=== PATIENT | male | born 1995 | race African-American/Black ===

== ENCOUNTER 2023-05-22 14:19 | Observation (INO) | payer OTHER ==
[2023-05-22 15:41] LABS: Appearance Clear (Clear); Bacteria None Seen /HPF (None Seen); Bilirubin Negative (Negative); Blood Trace (Negative); Epithelial Cells None Seen /HPF (None Seen); Glucose, Urine Negative (Negative); Ketones 40 (Negative); Leukocyte Esterase Negative (Negative); Nitrite Negative (Negative); Protein,Urine Dip 100 (Negative); RBC 0-2 /HPF (0-5); Specific Gravity 1.025 (1.005-1.030); Urobilinogen 0.2 mg/dL (0.2); WBC 0-2 /HPF (0-5)
[2023-05-22] MEDS ORDERED: Zofran 4 MG/2 ML VIAL IV ONE (15:42)
[2023-05-22] MEDS ORDERED: Sodium Chloride 0.9% 1000 ML 1,000 ML IV STA ×2 (15:42→16:47)
[2023-05-22] MEDS ORDERED: MORPHINE SULFATE 2 MG INJ IV ONE (15:42)
[2023-05-22 15:44] LABS: ADD URINE CULTURE? NO (NO)
[2023-05-22] MEDS ORDERED: Zofran 4 MG/2 ML VIAL ONE (15:51)
[2023-05-22] MEDS ORDERED: Sodium Chloride 0.9% 1000 ML 1,000 ML ONE ×2 (15:52→16:55)
[2023-05-22] MEDS ORDERED: MORPHINE SULFATE 2 MG INJ ONE (15:52)
[2023-05-22] MEDS ORDERED: Ativan 2 MG/1 ML VIAL IV ONE (15:59)
--- NOTE | 2023-05-22 16:00 | ERPHSYRPT ---
- History of Present Illness Time Seen by Provider: 05/22/23 16:00 Historian: patient Exam Limitations: no limitations Patient Subjective Stated Complaint: n/v/d Triage Nursing Assessment: Patient reports to ER with c/o abdominal pain, patient rating pain 8/10 at this time. Patient states that for the last couple of months he has been on a drinking binge consuming 1/2 gallon or greater daily and states that he has not consumed any alchohol x 3 days per his choice. Patient states that since he stopped drinking he has been experiencing n/v/d and constant abdominal cramping. Patient also reporting heartburn at this time. Patient with easy respirations but does appear diaphoretic and vomited x 1 during triage. Patient a&o x 3 and able to ambulate per self. Physician History: The patient presents with a chief complaint of stomach pain and discomfort, which began after they stopped drinking alcohol four days ago. They report having been drinking heavily for the past 2-3 months, consuming approximately half a gallon of alcohol each time. The patient has not experienced alcohol withdrawal or pancreatitis in the past. In addition to stomach pain, the patient has been experiencing flu-like symptoms, such as aching muscles, which they believe may be related to their kidneys and liver. They have been massaging the affected areas for temporary relief. The patient has also been unable to hold down liquids or food and has not been able to sleep for the past few days. They describe the sensation of drinking liquids as feeling like they are about to vomit. The patient has also been experiencing auditory and visual hallucinations, as well as disorientation. They report an instance where they were unable to re cognize their surroundings in their own home for about 10 seconds. They have also been feeling jittery, with a racing heart and trembling hands. Furthermore, the patient has been dealing with dental issues, including exposed nerves and chipped teeth in the back of their mouth. They report that their gums continue to grow over the affected teeth, causing significant pain. They have not been on antibiotics for this issue since approximately 11 months ago. Timing/Duration: day(s) (3) Activities at Onset: rest Quality: sharpness, stabbing Abdominal Pain Onset Location: epigastric Pain Radiation: no radiation Severity of Pain-Max: severe Severity of Pain-Current: severe Modifying Factors: Improves With: nothing. Worsens With: eating, movement, palpation, vomiting Associated Symptoms: diaphoresis, loss of appetite, nausea, vomiting, No chest pain, No diarrhea, No fever/chills, No headache, No rash, No shortness of breath Previous symptoms: no prior history Allergies/Adverse Reactions: No Known Drug Allergies Allergy (Unverified 05/22/23 15:22) Travel Risk - International Travel Have you traveled outside of the country in past 3 weeks: No - Coronavirus Screening Are you exhibiting any of the following symptoms?: No Close contact with a COVID-19 positive Pt in past 14-21 Days: No - Vaccine Status Have you recieved a Covid-19 vaccination: No - Review of Systems All Other Systems: Reviewed and Negative (As per HPI) - Past Medical History Pertinent Past Medical History: Yes Neurological History: No Pertinent History ENT History: No Pertinent History Cardiac History: No Pertinent History Respiratory History: No Pertinent History Endocrine Medical History: No Pertinent History Musculoskeletal History: No Pertinent History GI Medical History: No Pertinent History History: No Pertinent History Psycho-Social History: Anxiety, Bipolar, Depression Male Reproductive Disorders: No Pertinent History Other Medical History: schizophrenia. insomnia - Past Surgical History Past Surgical History: No - Social History Smoking Status: Never smoker Patient Lives Alone: No - Nursing Vital Signs Nursing Vital Signs: Initial Vital Signs Temperature 98.5 F 05/22/23 15:28 Pulse Rate 115 H 05/22/23 15:28 Respiratory Rate 21 05/22/23 15:28 Blood Pressure 133/100 05/22/23 15:28 O2 Sat by Pulse Oximetry 98 05/22/23 15:28 Pain Scale Pain Intensity 5 - Physical Exam General Appearance: moderate distress Eye Exam: eyes nml inspection Ears, Nose, Throat Exam: normal ENT inspection Neck Exam: normal inspection, non-tender, supple, full range of motion Respiratory Exam: normal breath sounds, No respiratory distress Cardiovascular Exam: regular rate/rhythm, capillary refill >3 sec, No edema Gastrointestinal/Abdomen Exam: soft, normal bowel sounds, tenderness (epigastric), guarding, No distention, No rebound Neurologic Exam: alert, oriented x 3, cooperative, crime scene photographer II-XII nml as tested, normal mood/affect, nml cerebellar function, sensation nml Skin Exam: normal color, warm, dry, No rash SpO2 Interpretation: normal SpO2: 98 O2 Delivery: Room Air - Course Nursing assessment & vital signs reviewed: Yes EKG Interpreted by Me: RATE (105), Sinus Tach, NORMAL AXIS, NORMAL INTERVALS, NORMAL QRS, NORMAL ST-T - CT Exams Abdomen/Pelvis CT Interpretation: Tele-radiologist Report (Appendix upper limit of normal, subcentimeter mesenteric lymph nodes) Ordered Tests: Active Orders 24 hr Category Date Time Status Clear Liquid Diet 05/23/23 Breakfast Completed Medication Summary Discontinued Medications Generic Name Dose Route Start Last Admin Trade Name Freq PRN Reason Stop Dose Admin Hydrocodone Bitart/Acetaminophen 1 tab 05/22/23 20:00 05/23/23 16:54 Hydrocodone/Apap 5/325 1 Tab Tablet PO 05/27/23 19:59 1 tab Q6H PRN PRN Administration PAIN Amoxicillin 500 mg 05/23/23 10:00 05/23/23 14:05 Amoxicillin Trihydrate 500 Mg Capsule PO 06/22/23 09:59 500 mg TID WILLIAM Administration Calcium Carbonate/Glycine 750 mg 05/23/23 08:26 05/23/23 14:05 Calcium Carbonate 750 Mg 750 Mg Tab.Chew PO 06/22/23 08:29 750 mg BID PRN PRN Administration INDIGESTION Diazepam 5 mg 05/23/23 09:31 05/23/23 10:24 Diazepam 5 Mg Tablet PO 06/22/23 09:30 5 mg PRN PRN Administration CIWA SCORE Famotidine 40 mg 05/23/23 10:00 05/23/23 09:33 Famotidine 20 Mg Tablet PO 06/22/23 09:59 40 mg DAILY WILLIAM Administration Folic Acid 1 mg 05/23/23 10:00 05/23/23 10:05 Folic Acid 1 Mg Tablet PO 06/22/23 09:59 1 mg DAILY WILLIAM Administration Sodium Chloride 1,000 mls @ 999 mls/hr 05/22/23 15:42 05/22/23 16:54 Sodium Chloride 0.9% 1000 Ml IV 05/22/23 16:42 Infused .Q1H1M STA Infusion Sodium Chloride Confirm 05/22/23 15:52 Sodium Chloride 0.9% 1000 Ml Administered 05/22/23 15:53 Dose 1,000 mls @ ud .ROUTE .STK-MED ONE Sodium Chloride 1,000 mls @ 999 mls/hr 05/22/23 16:47 05/22/23 18:02 Sodium Chloride 0.9% 1000 Ml IV 05/22/23 17:47 Infused .Q1H1M STA Infusion Sodium Chloride Confirm 05/22/23 16:55 Sodium Chloride 0.9% 1000 Ml Administered 05/22/23 16:56 Dose 1,000 mls @ ud .ROUTE .STK-MED ONE Ceftriaxone Sodium/Dextrose 2 g in 50 mls @ 100 mls/hr 05/22/23 17:23 05/22/23 18:02 Rocephin 2 Gm-D5w 50ml Bag IV 05/22/23 17:52 Infused STAT STA Infusion Metronidazole 500 mg in 100 mls @ 200 mls/hr 05/22/23 17:23 05/22/23 18:05 Flagyl 500 Mg Ivpb IV 05/22/23 17:52 200 ml/hr STAT STA 200 mls/hr Administration Ceftriaxone Sodium/Dextrose Confirm 05/22/23 17:28 Rocephin 2 Gm-D5w 50ml Bag Administered 05/22/23 17:29 Dose 2 g in 50 mls @ ud IV .STK-MED ONE Metronidazole Confirm 05/22/23 18:03 Flagyl 500 Mg Ivpb Administered 05/22/23 18:04 Dose 500 mg in 100 mls @ ud IV .STK-MED ONE Sodium Chloride 1,000 mls @ 100 mls/hr 05/23/23 08:30 05/23/23 09:33 Sodium Chloride 0.9% 1000 Ml IV 06/22/23 08:29 100 mls/hr .Q10H WILLIAM Administration Lorazepam 1 mg 05/22/23 15:59 05/22/23 16:06 Lorazepam 2 Mg/1 Ml 2 Mg Vial IV 05/22/23 16:00 1 mg STAT ONE Administration Lorazepam Confirm 05/22/23 16:05 Lorazepam 2 Mg/1 Ml 2 Mg Vial Administered 05/22/23 16:06 Dose 2 mg .ROUTE .STK-MED ONE Melatonin 6 mg 05/22/23 20:02 05/22/23 20:09 Melatonin 3 Mg Tablet PO 06/21/23 20:01 6 mg HS PRN PRN Administration INSOMNIA Melatonin Confirm 05/22/23 20:06 Melatonin 3 Mg Tablet Administered 05/22/23 20:07 Dose 6 mg PO .STK-MED ONE Mirtazapine 30 mg 05/23/23 22:00 Mirtazapine 30 Mg Tablet PO 06/22/23 21:59 QHS WILLIAM Mirtazapine 15 mg 05/23/23 22:00 Mirtazapine 15 Mg Tablet PO 06/22/23 21:59 HS WILLIAM Morphine Sulfate 2 mg 05/22/23 15:42 05/22/23 15:53 Morphine Sulfate 2 Mg/Ml Inj IV 05/22/23 15:43 2 mg STAT ONE Administration Morphine Sulfate Confirm 05/22/23 15:52 Morphine Sulfate 2 Mg/Ml Inj Administered 05/22/23 15:53 Dose 2 mg .ROUTE .STK-MED ONE Multivitamins Therapeutic 1 tab 05/23/23 10:00 05/23/23 10:05 Multivitamins,Therapeutic 1 Tab Tab PO 06/22/23 09:59 1 tab QAM WILLIAM Administration Ondansetron HCl 4 mg 05/22/23 15:42 05/22/23 15:53 Ondansetron Hcl 4 Mg/2 Ml Vial IV 05/22/23 15:43 4 mg STAT ONE Administration Ondansetron HCl Confirm 05/22/23 15:51 Ondansetron Hcl 4 Mg/2 Ml Vial Administered 05/22/23 15:52 Dose 4 mg .ROUTE .STK-MED ONE Ondansetron HCl 4 mg 05/23/23 08:23 05/23/23 14:05 Ondansetron Hcl 4 Mg/2 Ml Vial IV 06/22/23 08:22 4 mg Q6H PRN PRN Administration NAUSEA/VOMITING Quetiapine Fumarate 200 mg 05/23/23 22:00 Quetiapine Fumarate 100 Mg Tablet PO 06/22/23 21:59 QHS [facility] Thiamine HCl 100 mg 05/23/23 10:00 05/23/23 10:05 Thiamine Hcl 100 Mg Tablet PO 06/22/23 09:59 100 mg DAILY WILLIAM Administration Lab/Rad Data: Laboratory Result Diagrams 05/22/23 15:42 05/22/23 15:42 Laboratory Results 05/22/23 05/22/23 05/22/23 Range/Units 16:36 15:45 15:43 WBC (4.0-10.5) x10^3/uL RBC (4.1-5.6) x10^6/uL Hgb (12.5-18.0) g/dL Hct (42-50) % MCV (78-100) fL MCH (26-32) pg MCHC (32-36) g/dL RDW (11.5-14.0) % Plt Count (150-450) x10^3/uL MPV (7.5-11.0) fL Gran % (36.0-66.0) % Immature Gran % (Auto) (0.00-0.4) % Nucleat RBC Rel Count (0.00-0.1) % Eos # (Auto) (0-0.5) x10^3/uL Immature Gran # (Auto) (0.00-0.03) x10^3u/L Absolute Lymphs (auto) (1.0-4.6) x10^3/uL Absolute Monos (auto) (0.0-1.3) x10^3/uL Absolute Nucleated RBC (0.00-0.01) x10^3u/L Lymphocytes % (24.0-44.0) % Monocytes % (0.0-12.0) % Eosinophils % (0.00-5.0) % Basophils % (0.0-0.4) % Absolute Granulocytes (1.4-6.9) x10^3/uL Basophils # (0-0.4) x10^3/uL Sodium (137-145) mmol/L Potassium (3.5-5.1) mmol/L Chloride (98-107) mmol/L Carbon Dioxide (22-30) mmol/L Anion Gap (5-15) MEQ/L BUN (9-20) mg/dL Creatinine (0.66-1.25) mg/dL Estimated GFR ML/MIN Glucose (74-106) mg/dL Lactic Acid 6.0 H (0.4-2.0) Calcium (8.4-10.2) mg/dL Total Bilirubin (0.2-1.3) mg/dL AST (17-59) U/L ALT (0-50) U/L Alkaline Phosphatase (38-126) U/L Troponin I < 0.012 (0.000-0.034) ng/mL Serum Total Protein (6.3-8.2) g/dL Albumin (3.5-5.0) g/dL Lipase (23-300) U/L Urine Color (Yellow) Urine Appearance (Clear) Urine pH (4.6-8.0) Ur Specific [place] (1.005-1.030) Urine Protein (Negative) Urine Glucose (UA) (Negative) mg/dL Urine Ketones (Negative) Urine Blood (Negative) Urine Nitrite (Negative) Urine Bilirubin (Negative) Urine Urobilinogen (0.2) mg/dL Ur Leukocyte Esterase (Negative) U Hyaline Cast (Auto) (0-2) /LPF Urine Microscopic RBC (0-5) /HPF Urine Microscopic WBC (0-5) /HPF Ur Epithelial Cells (None Seen) /HPF Urine Bacteria (None Seen) /HPF Urine Culture Reflexed (NO) Ethyl Alcohol < 10 (0-10) mg/dL 05/22/23 05/22/23 05/22/23 Range/Units 15:42 15:42 14:57 WBC 15.3 H (4.0-10.5) x10^3/uL RBC 6.04 H (4.1-5.6) x10^6/uL Hgb 17.2 (12.5-18.0) g/dL Hct 53.3 H (42-50) % MCV 88.2 (78-100) fL MCH 28.5 (26-32) pg MCHC 32.3 (32-36) g/dL RDW 14.6 H (11.5-14.0) % Plt Count 359 (150-450) x10^3/uL MPV 10.2 (7.5-11.0) fL Gran % 84.5 H (36.0-66.0) % Immature Gran % (Auto) 0.4 (0.00-0.4) % Nucleat RBC Rel Count 0.0 (0.00-0.1) % Eos # (Auto) 0 (0-0.5) x10^3/uL Immature Gran # (Auto) 0.06 H (0.00-0.03) x10^3u/L Absolute Lymphs (auto) 1.68 (1.0-4.6) x10^3/uL Absolute Monos (auto) 0.59 (0.0-1.3) x10^3/uL Absolute Nucleated RBC 0.00 (0.00-0.01) x10^3u/L Lymphocytes % 11.0 L (24.0-44.0) % Monocytes % 3.9 (0.0-12.0) % Eosinophils % 0.0 (0.00-5.0) % Basophils % 0.2 (0.0-0.4) % Absolute Granulocytes 12.90 H (1.4-6.9) x10^3/uL Basophils # 0.03 (0-0.4) x10^3/uL Sodium 142 (137-145) mmol/L Potassium 4.9 (3.5-5.1) mmol/L Chloride 101 (98-107) mmol/L Carbon Dioxide 21 L (22-30) mmol/L Anion Gap 24.6 H (5-15) MEQ/L BUN 21 H (9-20) mg/dL Creatinine 1.39 H (0.66-1.25) mg/dL Estimated GFR > 60.0 ML/MIN Glucose 100 (74-106) mg/dL Lactic Acid (0.4-2.0) Calcium 10.4 H (8.4-10.2) mg/dL Total Bilirubin 0.70 (0.2-1.3) mg/dL AST 51 (17-59) U/L ALT 50 (0-50) U/L Alkaline Phosphatase 94 (38-126) U/L Troponin I (0.000-0.034) ng/mL Serum Total Protein 10.1 H (6.3-8.2) g/dL Albumin 5.8 H (3.5-5.0) g/dL Lipase 51 (23-300) U/L Urine Color Yellow (Yellow) Urine Appearance Clear (Clear) Urine pH 5.0 (4.6-8.0) Ur Specific [place] 1.025 (1.005-1.030) Urine Protein 100 A (Negative) Urine Glucose (UA) Negative (Negative) mg/dL Urine Ketones 40 A (Negative) Urine Blood Trace (Negative) Urine Nitrite Negative (Negative) Urine Bilirubin Negative (Negative) Urine Urobilinogen 0.2 (0.2) mg/dL Ur Leukocyte Esterase Negative (Negative) U Hyaline Cast (Auto) 3-5 A (0-2) /LPF Urine Microscopic RBC 0-2 (0-5) /HPF Urine Microscopic WBC 0-2 (0-5) /HPF Ur Epithelial Cells None Seen (None Seen) /HPF Urine Bacteria None Seen (None Seen) /HPF Urine Culture Reflexed NO (NO) Ethyl Alcohol (0-10) mg/dL - Progress Progress: improved Progress Note: -Overall sick appearing. No abnormal cardiopulmonary findings. Moderate abdominal ttp. No guarding. Surgical process seems possible given the exam and presentation. History and exam doesnt suggest AAA so no indication for CTA. Could be a benign cause of pain although dangerous pathology needs to be ruled out first -CT abd/pelv -Abdominal pain labs, analgesics CT without acute pathology. No pancreatitis on labs. Lactate elevated at 6, WBC 15 and Cr 1.36. Patient resting comfortably. Patient states they feel much better after meds and IVF. We discussed the limitations of CT imaging and that no test is perfect at finding all abnormalities. I discussed that the overall picture at this point is of a likely functional rather than surgical or infectious process. They understood. I did offer admission for further observation and care if they would like and patient elected to stay. Dental abscess The patient presents with dental pain, small abscess noted. There is no evidence at this point for a drainable site. The patient had no evidence for sepsis Ludwigs angina, posterior pharyngeal abscess, retropharyngeal infection, or airway compromise. Will treat with Ceftriaxone in the ED. I discussed with the patient the need for antibiotics and follow-up with Dentist/OMFS as an outpatient. There is no evidence for more malignant etiology for the symptoms at this time. I discussed the possibility of more malignant etiologies with patient who understands this possibility and will call or return immediately with worsening symptoms. Discussed return precautions at length. The patient understands to return for any worsening symptoms or failure to improve. Alcohol withdrawal + recent reduction in alcohol use from chronic abuse + anxiety +nausea + tachycardia + tremor + diaphoresis + auditory hallucinations Denies tactile and visual hallucinations. AAOx3. Denies history of withdrawal seizures, ICU admissions, DTs. Workup: Including but not limited to POCT glucose, CBC, BMP Interventions: Ativan 2mg q20min PRN withdrawal symptoms for 3-4 doses and reassess disposition. Given History, Exam, and Workup this patient appears to be suffering from alcohol withdrawal. Presentation not consistent with infectious etiology, thyrotoxicosis, Coingestion toxidrome/withdrawal, primary psychologic disorder such as anxiety, Severe Metabolic Derangement (hypoglycemia, alcoholic ketoacidosis, or other e- lyte abnormality). Reassessment: Frequent exams showed improving symptoms and evidence that the patients symptoms are secondary to a controllable withdrawal from alcohol. Disposition: Will admit to the floor for further management due to abd pain, LUCAS and alcohol withdrawal. Will see patient in: hospital (observation) Counseled pt/family regarding: drug and/or alcohol abuse, lab results, diagnosis, need for follow-up, rad results Medical Desision Making - Discussion of managment Care discussed with:: hospitalist Reviewed:: Test results Agreed on:: Treatment plan, place in obs Will see patient: in hospital - Diagnostic Testing Diagnostic test were ordered, analyzed, and reviewed by me: Yes Radiological Interpretation: Interpreted by me, Reviewed by me, Teleradiologist Report - Risk of complications The pt has a mod risk of morbidity or mortality based on: Need for prescription drug management The pt has a high risk of morbidity or mortality based on: Decision regarding hospitilization or escalation of hosp level of care - Departure Departure Disposition: Observation Clinical Impression: Alcohol withdrawal, Mesenteric lymphadenitis, Leukocytosis, LUCAS (acute kidney injury), Lactic acid increased Condition: Fair Critical Care Time: No
[2023-05-22] MEDS ORDERED: Ativan 2 MG/1 ML VIAL ONE (16:05)
[2023-05-22 16:16] LABS: BASOPHIL % 0.2 % (0.0-0.4); Basophil (Absolute #) 0.03 x10^3/uL (0-0.4); Eosinophil (Absolute #) 0 x10^3/uL (0-0.5); Hematocrit 53.3 % (42-50); Hemoglobin 17.2 g/dL (12.5-18.0); IMMATURE GRAN # 0.06 x10^3u/L (0.00-0.03); IMMATURE GRAN % 0.4 % (0.00-0.4); Lymphocyte (Absolute #) 1.68 x10^3/uL (1.0-4.6); Mean Cell Volume 88.2 fL (78-100); Mean Corpuscular Hemoglobin 28.5 pg (26-32); Mean Corpuscular Hgb Concent. 32.3 g/dL (32-36); Mean Platelet Volume 10.2 fL (7.5-11.0); Monocyte (Absolute #) 0.59 x10^3/uL (0.0-1.3); Monocytes % 3.9 % (0.0-12.0); Neutrophil % 84.5 % (36.0-66.0); Platelet Count 359 x10^3/uL (150-450); Red Blood Count 6.04 x10^6/uL (4.1-5.6); Red Cell Distribution Width 14.6 % (11.5-14.0); White Blood Count 15.3 x10^3/uL (4.0-10.5)
[2023-05-22 16:28] LABS: ALBUMIN 5.8 g/dL (3.5-5.0); ALKALINE PHOSPHATASE 94 U/L (38-126); ANION GAP 24.6 MEQ/L (5-15); BLOOD UREA NITROGEN 21 mg/dL (9-20); CHLORIDE 101 mmol/L (98-107); Calcium 10.4 mg/dL (8.4-10.2); Carbon Dioxide 21 mmol/L (22-30); Creatinine 1 1.39 mg/dL (0.66-1.25); EST GLOMERULAR FILTRATION RATE > 60.0 ML/MIN; Glucose 100 mg/dL (74-106); LIPASE 51 U/L (23-300); Potassium 4.9 mmol/L (3.5-5.1); SGOT/AST 51 U/L (17-59); SODIUM 142 mmol/L (137-145); Total Protein 10.1 g/dL (6.3-8.2)
[2023-05-22 16:33] LABS: SGPT/ALT 50 U/L (0-50)
--- NOTE | 2023-05-22 17:03 | XRAY ---
CLINICAL HISTORY:abd pain COMPARISON:None. TECHNIQUE:CT of the abdomen and pelvis was performed with axial images as well as sagittal and coronal reconstruction images without intravenous contrast. FINDINGS: The liver is normal in size, morphology and appears unremarkable with no intrahepatic or extrahepatic bile duct dilation. Unremarkable appearing gallbladder with no stones wall thickening or pericholecystic inflammatory changes or fluid. Unremarkable appearing pancreas. No pancreatic mass or ductal dilatation is seen. Unremarkable appearing spleen. The adrenal glands are normal. The kidneys appear unremarkable with no cysts masses or hydronephrosis. The ureters are normal with no stones. Unremarkable abdominal aorta without specific evidence of aneurysm or dissection. IVC is normal. The stomach appears unremarkable. Unremarkable appearing duodenum. Small Bowel and colon are non-distended with no abnormality. The appendix is visualized, size is upper limit of normal. No periappendiceal fat stranding seen. Few subcentimeter mesenteric lymph nodes seen. No free air and no ascites. No free intraperitoneal air is seen. Normal size and appearance of the prostate. No other bony abnormality was detected. Tiny phlebolith in the posterior right hemipelvis. IMPRESSION: 1. Limited organ parenchymal evaluation within the limitations of non-contrast study. 2. The appendix is visualized, size is upper limit of normal. No periappendiceal fat stranding seen. Few subcentimeter mesenteric lymph nodes seen. Clinical and lab correlation is suggested. 3. Otherwise, no acute intra-abdominal abnormality. Electronically Signed by: Josep Ge MD. (05/22/2023 16:02:49 [employer])
[2023-05-22] MEDS ORDERED: FLAGYL 500 MG IVPB 500 MG/100 ML BAG IV STA (17:23)
[2023-05-22] MEDS ORDERED: ROCEPHIN 2 Gm-D5w 50ML BAG** 2 G/50 ML IVPB IV STA (17:23)
[2023-05-22] MEDS ORDERED: ROCEPHIN 2 Gm-D5w 50ML BAG** 2 G/50 ML IVPB IV ONE (17:28)
[2023-05-22] MEDS ORDERED: FLAGYL 500 MG IVPB 500 MG/100 ML BAG IV ONE (18:03)
[2023-05-22] MEDS ORDERED: MELATONIN PO PRN (20:02)
[2023-05-22] MEDS ORDERED: MELATONIN PO ONE (20:06)
[2023-05-22] MEDS: NORCO 5/325 MG PO PRN (20:08)
[2023-05-23] MEDS: NORCO 5/325 MG PO PRN ×3 (03:53→16:54)
[2023-05-23 07:01] VITALS: RESP 17
[2023-05-23] MEDS ORDERED: Zofran 4 MG/2 ML VIAL IV PRN (08:23)
[2023-05-23] MEDS ORDERED: Tums EX 750 MG PO PRN (08:26)
[2023-05-23] MEDS ORDERED: Sodium Chloride 0.9% 1000 ML 1,000 ML IV SCH (08:30)
[2023-05-23 08:58] LABS: Hematocrit 42.7 % (42-50); Hemoglobin 13.8 g/dL (12.5-18.0); Mean Cell Volume 89.3 fL (78-100); Mean Corpuscular Hemoglobin 28.9 pg (26-32); Mean Corpuscular Hgb Concent. 32.3 g/dL (32-36); Platelet Count 265 x10^3/uL (150-450); Red Blood Count 4.78 x10^6/uL (4.1-5.6); Red Cell Distribution Width 14.8 % (11.5-14.0); White Blood Count 7.4 x10^3/uL (4.0-10.5)
[2023-05-23 09:29] LABS: ALBUMIN 4.1 g/dL (3.5-5.0); ALKALINE PHOSPHATASE 60 U/L (38-126); ANION GAP 9.9 MEQ/L (5-15); BLOOD UREA NITROGEN 17 mg/dL (9-20); CHLORIDE 105 mmol/L (98-107); Calcium 8.5 mg/dL (8.4-10.2); Carbon Dioxide 26 mmol/L (22-30); Creatinine 1 1.06 mg/dL (0.66-1.25); EST GLOMERULAR FILTRATION RATE > 60.0 ML/MIN; Glucose 115 mg/dL (74-106); Potassium 4.2 mmol/L (3.5-5.1); SGOT/AST 43 U/L (17-59); SGPT/ALT 33 U/L (0-50); SODIUM 136 mmol/L (137-145)
[2023-05-23] MEDS ORDERED: Valium 5 MG PO PRN (09:31)
[2023-05-23] MEDS ORDERED: VITAMIN B-1 100 MG PO SCH (10:00)
[2023-05-23] MEDS ORDERED: FOLATE 1 MG PO SCH (10:00)
[2023-05-23] MEDS ORDERED: Pepcid 20 MG PO SCH (10:00)
[2023-05-23] MEDS ORDERED: THERAGRAN MULTIVITAMIN PO SCH (10:00)
[2023-05-23] MEDS: AMOXIL 500 MG PO SCH ×2 (10:05→14:05)
--- NOTE | 2023-05-23 14:28 | PCM.DS ---
Discharge Summary Date of Admission: 05/22/23 18:12 Date of Discharge: 05/23/23 Admitting Physician: KAROLYN CHOU MD Consults: Consults on Case 05/22/23 16:00 Psychiatric Consult STAT Primary Care Provider: NO FAMILY DOCTOR Allergies Allergies No Known Drug Allergies Allergy (Unverified 05/22/23 15:22) Hospital Summary - Hospital Course Hospital Course: 05/23/23 Patient reports to ER yesterday with c/o abdominal pain, patient rating pain 8/10 at that time. Patient states that for the last couple of months he has been on a drinking binge consuming 1/2 gallon of Amanda or greater daily and states that he has not consumed any alcohol x 3 days per his choice. Patient states that since he stopped drinking he has been experiencing n/v/d and constant abdominal cramping. Patient also reporting heartburn. Pt is feeling better today just a little shaky. He is wanting to go home. Psych consulted and ok with DC. Pt to f/u OP with [facility]. Pt denies suicidal or homicidal ideation. He is refusing to go to a rehab facility as he has pending court dates. He is willing to consider after his court dates. - Vitals & Intake/Output Vital Signs: Vital Signs Temperature 97.5 F 05/23/23 11:35 Pulse Rate 75 05/23/23 11:35 Respiratory Rate 17 05/23/23 11:35 Blood Pressure 115/64 05/23/23 11:35 O2 Sat by Pulse Oximetry 98 05/23/23 11:35 Intake & Output: Intake & Output 05/21/23 05/22/23 05/23/23 05/24/23 11:59 11:59 11:59 11:59 Intake Total 2860 240 Balance 2860 240 Weight 81.7 kg - Lab Result Diagrams: 05/23/23 08:21 05/23/23 08:21 Lab Results-Last 24 Hrs: Lab Results-Last 24 Hours 05/22/23 05/22/23 05/22/23 Range/Units 14:57 15:42 15:42 WBC 15.3 H (4.0-10.5) x10^3/uL RBC 6.04 H (4.1-5.6) x10^6/uL Hgb 17.2 (12.5-18.0) g/dL Hct 53.3 H (42-50) % MCV 88.2 (78-100) fL MCH 28.5 (26-32) pg MCHC 32.3 (32-36) g/dL RDW 14.6 H (11.5-14.0) % Plt Count 359 (150-450) x10^3/uL MPV 10.2 (7.5-11.0) fL Gran % 84.5 H (36.0-66.0) % Immature Gran % (Auto) 0.4 (0.00-0.4) % Nucleat RBC Rel Count 0.0 (0.00-0.1) % Eos # (Auto) 0 (0-0.5) x10^3/uL Immature Gran # (Auto) 0.06 H (0.00-0.03) x10^3u/L Absolute Lymphs (auto) 1.68 (1.0-4.6) x10^3/uL Absolute Monos (auto) 0.59 (0.0-1.3) x10^3/uL Absolute Nucleated RBC 0.00 (0.00-0.01) x10^3u/L Lymphocytes % 11.0 L (24.0-44.0) % Monocytes % 3.9 (0.0-12.0) % Eosinophils % 0.0 (0.00-5.0) % Basophils % 0.2 (0.0-0.4) % Absolute Granulocytes 12.90 H (1.4-6.9) x10^3/uL Basophils # 0.03 (0-0.4) x10^3/uL Sodium 142 (137-145) mmol/L Potassium 4.9 (3.5-5.1) mmol/L Chloride 101 (98-107) mmol/L Carbon Dioxide 21 L (22-30) mmol/L Anion Gap 24.6 H (5-15) MEQ/L BUN 21 H (9-20) mg/dL Creatinine 1.39 H (0.66-1.25) mg/dL Estimated GFR > 60.0 ML/MIN Glucose 100 (74-106) mg/dL Lactic Acid (0.4-2.0) Calcium 10.4 H (8.4-10.2) mg/dL Total Bilirubin 0.70 (0.2-1.3) mg/dL AST 51 (17-59) U/L ALT 50 (0-50) U/L Alkaline Phosphatase 94 (38-126) U/L Troponin I (0.000-0.034) ng/mL Serum Total Protein 10.1 H (6.3-8.2) g/dL Albumin 5.8 H (3.5-5.0) g/dL Lipase 51 (23-300) U/L Urine Color Yellow (Yellow) Urine Appearance Clear (Clear) Urine pH 5.0 (4.6-8.0) Ur Specific [place] 1.025 (1.005-1.030) Urine Protein 100 A (Negative) Urine Glucose (UA) Negative (Negative) mg/dL Urine Ketones 40 A (Negative) Urine Blood Trace (Negative) Urine Nitrite Negative (Negative) Urine Bilirubin Negative (Negative) Urine Urobilinogen 0.2 (0.2) mg/dL Ur Leukocyte Esterase Negative (Negative) U Hyaline Cast (Auto) 3-5 A (0-2) /LPF Urine Microscopic RBC 0-2 (0-5) /HPF Urine Microscopic WBC 0-2 (0-5) /HPF Ur Epithelial Cells None Seen (None Seen) /HPF Urine Bacteria None Seen (None Seen) /HPF Urine Culture Reflexed NO (NO) Ethyl Alcohol (0-10) mg/dL 05/22/23 05/22/23 05/22/23 Range/Units 15:43 15:45 16:36 WBC (4.0-10.5) x10^3/uL RBC (4.1-5.6) x10^6/uL Hgb (12.5-18.0) g/dL Hct (42-50) % MCV (78-100) fL MCH (26-32) pg MCHC (32-36) g/dL RDW (11.5-14.0) % Plt Count (150-450) x10^3/uL MPV (7.5-11.0) fL Gran % (36.0-66.0) % Immature Gran % (Auto) (0.00-0.4) % Nucleat RBC Rel Count (0.00-0.1) % Eos # (Auto) (0-0.5) x10^3/uL Immature Gran # (Auto) (0.00-0.03) x10^3u/L Absolute Lymphs (auto) (1.0-4.6) x10^3/uL Absolute Monos (auto) (0.0-1.3) x10^3/uL Absolute Nucleated RBC (0.00-0.01) x10^3u/L Lymphocytes % (24.0-44.0) % Monocytes % (0.0-12.0) % Eosinophils % (0.00-5.0) % Basophils % (0.0-0.4) % Absolute Granulocytes (1.4-6.9) x10^3/uL Basophils # (0-0.4) x10^3/uL Sodium (137-145) mmol/L Potassium (3.5-5.1) mmol/L Chloride (98-107) mmol/L Carbon Dioxide (22-30) mmol/L Anion Gap (5-15) MEQ/L BUN (9-20) mg/dL Creatinine (0.66-1.25) mg/dL Estimated GFR ML/MIN Glucose (74-106) mg/dL Lactic Acid 6.0 H (0.4-2.0) Calcium (8.4-10.2) mg/dL Total Bilirubin (0.2-1.3) mg/dL AST (17-59) U/L ALT (0-50) U/L Alkaline Phosphatase (38-126) U/L Troponin I < 0.012 (0.000-0.034) ng/mL Serum Total Protein (6.3-8.2) g/dL Albumin (3.5-5.0) g/dL Lipase (23-300) U/L Urine Color (Yellow) Urine Appearance (Clear) Urine pH (4.6-8.0) Ur Specific [place] (1.005-1.030) Urine Protein (Negative) Urine Glucose (UA) (Negative) mg/dL Urine Ketones (Negative) Urine Blood (Negative) Urine Nitrite (Negative) Urine Bilirubin (Negative) Urine Urobilinogen (0.2) mg/dL Ur Leukocyte Esterase (Negative) U Hyaline Cast (Auto) (0-2) /LPF Urine Microscopic RBC (0-5) /HPF Urine Microscopic WBC (0-5) /HPF Ur Epithelial Cells (None Seen) /HPF Urine Bacteria (None Seen) /HPF Urine Culture Reflexed (NO) Ethyl Alcohol < 10 (0-10) mg/dL 05/22/23 05/23/23 05/23/23 Range/Units 18:40 08:21 08:21 WBC 7.4 (4.0-10.5) x10^3/uL RBC 4.78 (4.1-5.6) x10^6/uL Hgb 13.8 (12.5-18.0) g/dL Hct 42.7 (42-50) % MCV 89.3 (78-100) fL MCH 28.9 (26-32) pg MCHC 32.3 (32-36) g/dL RDW 14.8 H (11.5-14.0) % Plt Count 265 (150-450) x10^3/uL MPV 10.0 (7.5-11.0) fL Gran % (36.0-66.0) % Immature Gran % (Auto) (0.00-0.4) % Nucleat RBC Rel Count (0.00-0.1) % Eos # (Auto) (0-0.5) x10^3/uL Immature Gran # (Auto) (0.00-0.03) x10^3u/L Absolute Lymphs (auto) (1.0-4.6) x10^3/uL Absolute Monos (auto) (0.0-1.3) x10^3/uL Absolute Nucleated RBC (0.00-0.01) x10^3u/L Lymphocytes % (24.0-44.0) % Monocytes % (0.0-12.0) % Eosinophils % (0.00-5.0) % Basophils % (0.0-0.4) % Absolute Granulocytes (1.4-6.9) x10^3/uL Basophils # (0-0.4) x10^3/uL Sodium 136 L (137-145) mmol/L Potassium 4.2 (3.5-5.1) mmol/L Chloride 105 (98-107) mmol/L Carbon Dioxide 26 (22-30) mmol/L Anion Gap 9.9 (5-15) MEQ/L BUN 17 (9-20) mg/dL Creatinine 1.06 (0.66-1.25) mg/dL Estimated GFR > 60.0 ML/MIN Glucose 115 H (74-106) mg/dL Lactic Acid 2.3 H (0.4-2.0) Calcium 8.5 D (8.4-10.2) mg/dL Total Bilirubin 0.60 (0.2-1.3) mg/dL AST 43 (17-59) U/L ALT 33 (0-50) U/L Alkaline Phosphatase 60 (38-126) U/L Troponin I (0.000-0.034) ng/mL Serum Total Protein 7.0 (6.3-8.2) g/dL Albumin 4.1 (3.5-5.0) g/dL Lipase (23-300) U/L Urine Color (Yellow) Urine Appearance (Clear) Urine pH (4.6-8.0) Ur Specific [place] (1.005-1.030) Urine Protein (Negative) Urine Glucose (UA) (Negative) mg/dL Urine Ketones (Negative) Urine Blood (Negative) Urine Nitrite (Negative) Urine Bilirubin (Negative) Urine Urobilinogen (0.2) mg/dL Ur Leukocyte Esterase (Negative) U Hyaline Cast (Auto) (0-2) /LPF Urine Microscopic RBC (0-5) /HPF Urine Microscopic WBC (0-5) /HPF Ur Epithelial Cells (None Seen) /HPF Urine Bacteria (None Seen) /HPF Urine Culture Reflexed (NO) Ethyl Alcohol (0-10) mg/dL 05/23/23 Range/Units 09:03 WBC (4.0-10.5) x10^3/uL RBC (4.1-5.6) x10^6/uL Hgb (12.5-18.0) g/dL Hct (42-50) % MCV (78-100) fL MCH (26-32) pg MCHC (32-36) g/dL RDW (11.5-14.0) % Plt Count (150-450) x10^3/uL MPV (7.5-11.0) fL Gran % (36.0-66.0) % Immature Gran % (Auto) (0.00-0.4) % Nucleat RBC Rel Count (0.00-0.1) % Eos # (Auto) (0-0.5) x10^3/uL Immature Gran # (Auto) (0.00-0.03) x10^3u/L Absolute Lymphs (auto) (1.0-4.6) x10^3/uL Absolute Monos (auto) (0.0-1.3) x10^3/uL Absolute Nucleated RBC (0.00-0.01) x10^3u/L Lymphocytes % (24.0-44.0) % Monocytes % (0.0-12.0) % Eosinophils % (0.00-5.0) % Basophils % (0.0-0.4) % Absolute Granulocytes (1.4-6.9) x10^3/uL Basophils # (0-0.4) x10^3/uL Sodium (137-145) mmol/L Potassium (3.5-5.1) mmol/L Chloride (98-107) mmol/L Carbon Dioxide (22-30) mmol/L Anion Gap (5-15) MEQ/L BUN (9-20) mg/dL Creatinine (0.66-1.25) mg/dL Estimated GFR ML/MIN Glucose (74-106) mg/dL Lactic Acid 0.8 (0.4-2.0) Calcium (8.4-10.2) mg/dL Total Bilirubin (0.2-1.3) mg/dL AST (17-59) U/L ALT (0-50) U/L Alkaline Phosphatase (38-126) U/L Troponin I (0.000-0.034) ng/mL Serum Total Protein (6.3-8.2) g/dL Albumin (3.5-5.0) g/dL Lipase (23-300) U/L Urine Color (Yellow) Urine Appearance (Clear) Urine pH (4.6-8.0) Ur Specific [place] (1.005-1.030) Urine Protein (Negative) Urine Glucose (UA) (Negative) mg/dL Urine Ketones (Negative) Urine Blood (Negative) Urine Nitrite (Negative) Urine Bilirubin (Negative) Urine Urobilinogen (0.2) mg/dL Ur Leukocyte Esterase (Negative) U Hyaline Cast (Auto) (0-2) /LPF Urine Microscopic RBC (0-5) /HPF Urine Microscopic WBC (0-5) /HPF Ur Epithelial Cells (None Seen) /HPF Urine Bacteria (None Seen) /HPF Urine Culture Reflexed (NO) Ethyl Alcohol (0-10) mg/dL - Radiology Exams Ordered Rad Exams-Entire Visit: Radiology Procedures Category Date Time Status ABDOMEN AND PELVIS W/0 CONTRAS [CT] Stat Exams 05/22/23 15:42 Completed Discharge Exam General Appearance: no apparent distress, alert Neurologic Exam: alert, oriented x 3, cooperative, normal mood/affect, nml cerebellar function, sensation nml, No motor deficits Eye Exam: PERRL, EOMI, eyes nml inspection Ears, Nose, Throat Exam: normal ENT inspection, pharynx normal, moist mucous membranes Neck Exam: normal inspection, non-tender, supple, full range of motion Respiratory Exam: normal breath sounds, lungs clear, No respiratory distress Cardiovascular Exam: regular rate/rhythm, normal heart sounds Gastrointestinal/Abdomen Exam: soft, No tenderness, No mass Male Genitalia Exam: deferred Rectal Exam: deferred Back Exam: normal inspection, normal range of motion, No CVA tenderness, No vertebral tenderness Extremity Exam: normal inspection, normal range of motion Skin Exam: normal color, warm, dry Final Diagnosis/Problem List - Final Discharge Diagnosis/Problem (1) Alcohol withdrawal Current Visit: Yes Status: Acute Assessment & Plan: - alcohol withdrawl protocol - IV fluids Code(s): F10.939 - ALCOHOL USE, UNSPECIFIED WITH WITHDRAWAL, UNSPECIFIED (2) LUCAS (acute kidney injury) Current Visit: Yes Status: Acute Assessment & Plan: - resolved Code(s): N17.9 - ACUTE KIDNEY FAILURE, UNSPECIFIED (3) Lactic acid increased Current Visit: Yes Status: Acute Assessment & Plan: - resolved with fluid bolus x2 and IV fluids Code(s): E87.20 - ACIDOSIS, UNSPECIFIED (4) Leukocytosis Current Visit: Yes Status: Acute Assessment & Plan: - resolved Code(s): D72.829 - ELEVATED WHITE BLOOD CELL COUNT, UNSPECIFIED (5) Tooth abscess Current Visit: Yes Status: Acute Assessment & Plan: - Rocephin gave in ER - amoxicillin Code(s): K04.7 - PERIAPICAL ABSCESS WITHOUT SINUS - Discharge Discharge Date: 05/23/23 Disposition: Home, Self-Care Condition: Fair Prescriptions: New Thiamine HCl 100 mg [Vitamin B-1 100 mg] 100 mg PO DAILY 30 Days tablet Continue Quetiapine Fumarate 100 mg [Seroquel 100 MG] 200 mg PO QHS 14 Days #28 tablet Discontinued Mirtazapine [Remeron] 45 mg PO QHS Instructions: Tooth Abscess (DC), Alcohol Withdrawal (DC) Additional Instructions: YOU CAN CALL MEMBER SERVICES AT TO GET THE INFORMATION ABOUT TRANSPORTATION SERVICES OFFERED BY YOUR INSURANCE. THESE RIDES USUALLY HAVE TO BE SCHEDULED 48 HR IN ADVANCE. DENTIST IN [place]: DR. LAMBERT [phone], [facility]- DR. BECERRIL [phone]. [facility] [place]: [phone] -- CALL TO SET UP INITIAL ASSESSMENT WITH ZOHREH TO GET ESTABLISHED WITH COUNSELING AND PSYCHIATRIST. Follow up with: HARI BETANCUR DO [ACTIVE STAFF] - 06/01/23 1:30 pm Forms: Discharge Instructions
[2023-05-23 16:13] VITALS: BP 143/76; PULSE 77; TEMP 97.8
[2023-05-23 19:43] LABS: Amphetamine,Urine NEGATIVE (NEGATIVE); Barbiturate,Urine NEGATIVE (NEGATIVE); Benzodiazepine,Urine NEGATIVE (NEGATIVE); Cocaine,Urine NEGATIVE (NEGATIVE); Methadone,Urine NEGATIVE (NEGATIVE); Opiate,Urine NEGATIVE (NEGATIVE); PCP,Urine NEGATIVE (NEGATIVE); THC,Urine POSITIVE (NEGATIVE)
[2023-05-23] MEDS ORDERED: Seroquel 100 MG PO SCH (22:00)
[2023-05-23] MEDS ORDERED: MIRTAZAPINE PO SCH (22:00)
[2023-05-23] MEDS ORDERED: REMERON 30 MG PO SCH (22:00)
[2023-05-23 22:42] VITALS: O2SAT 98
== END 2023-05-23 17:14 | disposition home or self-care (01) ==
LOC: EDBD 14:19 → ED 14:19 → EDBD 18:12 → MED SURG 18:12
PROVIDERS: ADMIT Internal Medicine; ATTEND Internal Medicine
DX: F10.939 Alcohol use, unspecified with withdrawal, unspecified (principal); R10.9 Unspecified abdominal pain; N17.9 Acute kidney failure, unspecified; E87.20 Acidosis, unspecified; D72.829 Elevated white blood cell count, unspecified; K04.7 Periapical abscess without sinus; Z79.899 Other long term (current) drug therapy
CPT/HCPCS: 36000; 36415; 74176; 80053; 80307; 81001; 82077; 83605; 83690; 84484; 85025; 85027; 90791; 93005; 93268; 96365; 96374; 96375; 99284; G0378; Q3014; J0696; J2060; J2270; J2405; A9270-GY

== ENCOUNTER 2023-08-20 17:11 | Emergency (ER) | payer OTHER ==
[2023-08-20 17:26] VITALS: BP 111/82; PULSE 78; RESP 18; TEMP 97; O2SAT 98
[2023-08-20] MEDS ORDERED: TORAdol 30 mg Injection ONE (17:50)
[2023-08-20] MEDS ORDERED: TORAdol 30 mg Injection IM ONE (17:50)
--- NOTE | 2023-08-20 18:00 | ERPHSYRPT ---
- History of Present Illness Time Seen by Provider: 08/20/23 17:40 Source: patient Patient Subjective Stated Complaint: pt here for toothache to left side of face for over 2 months now, he is unable to afford a dentist, he has been taking a friends [employer] Triage Nursing Assessment: pt alert, walked in, resp easy, skin w/d/p, moves all ext well, pain to left side of face, no swelling Physician History: 28yo m presents for "toothache," started several days ago, states tylenol/ibuprofen do not help, states he did take one of his friends leeoden and that improved his pain. Pt presented to nurse's station multiple times before I was able to come to bedside to evaluate formally as I was managing a critical patient situation. Pt was offered toradol injection for pain relief, at which time he stated he did not want a shot, he needed 2 days worth of pain pills to make his pain better until he could get to the dentist. Nursing staff informed pt that this was what I had offered as initial pain relief, but I would evaluate shortly. Pt decided to leave without any treatment and was never seen by me. Allergies/Adverse Reactions: No Known Drug Allergies Allergy (Verified 08/20/23 17:19) Home Medications: Mirtazapine 30 mg [Remeron 30 mg] 30 mg PO DAILY 08/20/23 [History] Hx Influenza Vaccination/Date Given: No Hx Pneumococcal Vaccination/Date Given: No Immunizations Up to Date: Yes Travel Risk - International Travel Have you traveled outside of the country in past 3 weeks: No - Coronavirus Screening Are you exhibiting any of the following symptoms?: No Close contact with a COVID-19 positive Pt in past 14-21 Days: No - Vaccine Status Have you recieved a Covid-19 vaccination: No - Past Medical History Pertinent Past Medical History: Yes Neurological History: No Pertinent History ENT History: No Pertinent History Cardiac History: No Pertinent History Respiratory History: No Pertinent History Endocrine Medical History: No Pertinent History Musculoskeletal History: No Pertinent History GI Medical History: No Pertinent History History: No Pertinent History Psycho-Social History: Anxiety, Bipolar, Depression Male Reproductive Disorders: No Pertinent History Other Medical History: schizophrenia. insomnia - Past Surgical History Past Surgical History: No - Social History Smoking Status: Never smoker Exposure to second hand smoke: No Drug Use: marijuana Patient Lives Alone: No - Nursing Vital Signs Nursing Vital Signs: Initial Vital Signs Temperature 97.0 F 08/20/23 17:25 Pulse Rate 78 08/20/23 17:25 Respiratory Rate 18 08/20/23 17:25 Blood Pressure 111/82 08/20/23 17:25 O2 Sat by Pulse Oximetry 98 08/20/23 17:25 Pain Scale Pain Intensity 7 - Physical Exam SpO2: 98 Ordered Tests: Medication Summary Discontinued Medications Generic Name Dose Route Start Last Admin Trade Name Bryan PRN Reason Stop Dose Admin Ketorolac Tromethamine Confirm 08/20/23 17:50 Ketorolac Tromethamine 30 Mg/Ml Inj Administered 08/20/23 17:51 Dose 30 mg .ROUTE .STK-MED ONE Ketorolac Tromethamine 30 mg 08/20/23 17:50 Ketorolac Tromethamine 30 Mg/Ml Inj IM 08/20/23 17:51 STAT ONE - Progress Progress Note: 08/20/23 18:20 28yo m presents for "toothache," started several days ago, states tylenol/ibuprofen do not help, states he did take one of his friends josseline and that improved his pain. Pt presented to nurse's station multiple times before I was able to come to bedside to evaluate formally as I was managing a critical patient situation. Pt was offered toradol injection for pain relief, at which time he stated he did not want a shot, he needed 2 days worth of pain pills to make his pain better until he could get to the dentist. Nursing staff informed pt that this was what I had offered as initial pain relief, but I would evaluate shortly. Pt decided to leave without any treatment and was never seen by me. Medical Desision Making - Risk of complications Minimal Risk: (pt left without being seen by physician) - Departure Departure Disposition: Left without being seen Clinical Impression: Mouth pain Condition: Stable Critical Care Time: No Referrals: DOCTOR,NO FAMILY [Primary Care Provider] - Follow up/PCP as directed
== END 2023-08-20 18:01 | disposition left against medical advice (07) ==
LOC: ED 17:11
DX: K08.89 Other specified disorders of teeth and supporting structures (principal)
CPT/HCPCS: 99281; G0463; J1885

== ENCOUNTER 2023-12-20 13:33 | Emergency (ER) | payer BC, OTHER ==
--- NOTE | 2023-12-20 14:15 | ERPHSYRPT ---
- History of Present Illness Time Seen by Provider: 12/20/23 14:20 Source: patient Exam Limitations: no limitations Physician History: 28-year-old male presents to our ED for evaluation of possible dehydration. Patient states he feels as though his skin and his face are dry. No nausea vomiting or diaphoresis. No diarrhea no rash. Symptoms are mild to moderate in intensity. No specific worsening improving factors. No associated abdominal pain. No back pain. Patient has no significant cardiovascular risk factors. Patient voices no other complaints or concerns at this time. Patient states he has been off his psychiatric medications. He states he will follow-up with his primary care doctor to restart his medications. Patient has no homicidal suicidal ideation. Portions of this note were created with voice recognition technology. There may be grammatical, spelling, punctuation or sound alike errors Timing/Duration: today Severity: moderate Modifying Factors: Improves With: nothing Associated Symptoms: denies symptoms Allergies/Adverse Reactions: No Known Drug Allergies Allergy (Verified 12/20/23 14:21) Home Medications: Mirtazapine 30 mg [Remeron 30 mg] 30 mg PO DAILY 08/20/23 [History] Hx Influenza Vaccination/Date Given: No Hx Pneumococcal Vaccination/Date Given: No - Review of Systems Constitutional: No Symptoms, No Fever, No Chills Eyes: No Symptoms Ears, Nose, & Throat: No Symptoms Respiratory: No Symptoms, No Cough, No Dyspnea Cardiac: No Symptoms, No Chest Pain, No Edema, No Syncope Abdominal/Gastrointestinal: No Symptoms, No Abdominal Pain, No Nausea, No Vomiting, No Diarrhea Genitourinary Symptoms: No Symptoms, No Dysuria Musculoskeletal: No Symptoms, No Back Pain, No Neck Pain Skin: No Symptoms, No Rash Neurological: No Symptoms, No Dizziness, No Focal Weakness, No Sensory Changes Psychological: No Symptoms Endocrine: No Symptoms Hematologic/Lymphatic: No Symptoms Immunological/Allergic: No Symptoms All Other Systems: Reviewed and Negative - Past Medical History Pertinent Past Medical History: Yes Neurological History: No Pertinent History ENT History: No Pertinent History Cardiac History: No Pertinent History Respiratory History: No Pertinent History Endocrine Medical History: No Pertinent History Musculoskeletal History: No Pertinent History GI Medical History: No Pertinent History History: No Pertinent History Psycho-Social History: Anxiety, Bipolar, Depression Male Reproductive Disorders: No Pertinent History Other Medical History: schizophrenia. insomnia - Past Surgical History Past Surgical History: No - Social History Smoking Status: Never smoker Exposure to second hand smoke: No Drug Use: marijuana Patient Lives Alone: No - Nursing Vital Signs Nursing Vital Signs: Initial Vital Signs Pulse Rate 92 H 12/20/23 14:02 Respiratory Rate 21 12/20/23 14:02 Blood Pressure 125/93 12/20/23 14:02 O2 Sat by Pulse Oximetry 98 12/20/23 14:02 Pain Scale Pain Intensity 3 - Physical Exam General Appearance: no apparent distress, alert Eye Exam: PERRL/EOMI, eyes nml inspection Ears, Nose, Throat Exam: normal ENT inspection, TMs normal, pharynx normal, moist mucous membranes Neck Exam: normal inspection, non-tender, supple, full range of motion Respiratory Exam: normal breath sounds, lungs clear, airway intact, No respiratory distress Cardiovascular Exam: regular rate/rhythm, normal heart sounds, normal peripheral pulses Gastrointestinal/Abdomen Exam: soft, normal bowel sounds, No tenderness, No mass Back Exam: normal inspection, normal range of motion, No CVA tenderness, No clinton tebral tenderness Extremity Exam: normal inspection, normal range of motion, pelvis stable Neurologic Exam: alert, oriented x 3, cooperative, normal mood/affect, nml cerebellar function, nml station & gait, sensation nml, No motor deficits Skin Exam: normal color, warm, dry, No rash Lymphatic Exam: No adenopathy SpO2 Interpretation: normal SpO2: 98 O2 Delivery: Room Air - Course Nursing assessment & vital signs reviewed: Yes Ordered Tests: Active Orders 24 hr Category Date Time Status IV Insertion STAT Care 12/20/23 14:15 Completed Pulse Oximetry (ED) STAT Care 12/20/23 14:15 Completed ACO SDOH Referral ONCE Cons 12/20/23 14:21 Completed CBC W DIFF Stat Lab 12/20/23 14:10 Completed CMP Stat Lab 12/20/23 14:10 Completed TROPONIN Q4H Lab 12/20/23 14:10 Completed UA W/RFX UR CULTURE Stat Lab 12/20/23 14:20 Completed Urine Triage Profile Stat Lab 12/20/23 14:20 Completed Medication Summary Discontinued Medications Generic Name Dose Route Start Last Admin Trade Name Freq PRN Reason Stop Dose Admin Sodium Chloride 1,000 mls @ 999 mls/hr 12/20/23 14:15 12/20/23 15:23 Sodium Chloride 0.9% 1000 Ml IV 12/20/23 15:15 Infused .Q1H1M STA Infusion Sodium Chloride Confirm 12/20/23 14:21 Sodium Chloride 0.9% 1000 Ml Administered 12/20/23 14:22 Dose 1,000 mls @ ud .ROUTE .STK-MED ONE Ceftriaxone Sodium 1 gm in 100 mls @ 200 mls/hr 12/20/23 15:30 12/20/23 15:42 Rocephin 1 Gm / 100 Ml Nacl IV 12/20/23 15:59 200 ml/hr STAT ONE 200 mls/hr Administration Ceftriaxone Sodium Confirm 12/20/23 15:40 Rocephin 1 Gm / 100 Ml Nacl Administered 12/20/23 15:41 Dose 1 gm in 100 mls @ ud IV .STK-MED ONE Lab/Rad Data: Laboratory Result Diagrams 12/20/23 14:10 12/20/23 14:10 Laboratory Results 12/20/23 12/20/23 12/20/23 Range/Units Unknown 14:20 14:20 WBC (4.0-10.5) x10^3/uL RBC (4.1-5.6) x10^6/uL Hgb (12.5-18.0) g/dL Hct (42-50) % MCV (78-100) fL MCH (26-32) pg MCHC (32-36) g/dL RDW (11.5-14.0) % Plt Count (150-450) x10^3/uL MPV (7.5-11.0) fL Gran % (36.0-66.0) % Immature Gran % (Auto) (0.00-0.4) % Nucleat RBC Rel Count (0.00-0.1) % Eos # (Auto) (0-0.5) x10^3/uL Immature Gran # (Auto) (0.00-0.03) x10^3u/L Absolute Lymphs (auto) (1.0-4.6) x10^3/uL Absolute Monos (auto) (0.0-1.3) x10^3/uL Absolute Nucleated RBC (0.00-0.01) x10^3u/L Lymphocytes % (24.0-44.0) % Monocytes % (0.0-12.0) % Eosinophils % (0.00-5.0) % Basophils % (0.0-0.4) % Absolute Granulocytes (1.4-6.9) x10^3/uL Basophils # (0-0.4) x10^3/uL Sodium (135-145) mmol/L Potassium (3.5-5.1) mmol/L Chloride (98-107) mmol/L Carbon Dioxide (22-30) mmol/L Anion Gap (5-15) MEQ/L BUN (9-20) mg/dL Creatinine (0.66-1.25) mg/dL Estimated GFR ML/MIN Glucose (74-106) mg/dL Calcium (8.4-10.2) mg/dL Total Bilirubin (0.2-1.3) mg/dL AST (17-59) U/L ALT (0-50) U/L Alkaline Phosphatase (38-126) U/L Troponin I (0.000-0.033) ng/mL Serum Total Protein (6.3-8.2) g/dL Albumin (3.5-5.0) g/dL Urine Color Yellow (Yellow) Urine Appearance Clear (Clear) Urine pH 6.0 (4.6-8.0) Ur Specific [place] 1.025 (1.005-1.030) Urine Protein Negative (Negative) Urine Glucose (UA) Negative (Negative) mg/dL Urine Ketones Negative (Negative) Urine Blood Negative (Negative) Urine Nitrite Negative (Negative) Urine Bilirubin Negative (Negative) Urine Urobilinogen 1.0 A (0.2) mg/dL Ur Leukocyte Esterase Trace A (Negative) U Hyaline Cast (Auto) NONE SEEN (0-2) /LPF Urine Microscopic RBC 0-2 (0-5) /HPF Urine Microscopic WBC 6-10 A (0-5) /HPF Ur Epithelial Cells None Seen (None Seen) /HPF Urine Bacteria None Seen (None Seen) /HPF Urine Culture Reflexed NO (NO) Urine Opiates Level NEGATIVE (NEGATIVE) Ur Methadone NEGATIVE (NEGATIVE) Urine Barbiturates NEGATIVE (NEGATIVE) Ur Phencyclidine (PCP) NEGATIVE (NEGATIVE) Urine Amphetamine POSITIVE A (NEGATIVE) U Benzodiazepine Level NEGATIVE (NEGATIVE) Urine Cocaine NEGATIVE (NEGATIVE) Urine Marijuana (THC) POSITIVE A (NEGATIVE) Chlamydia DNA Probe NOT DETECTED (NEGATIVE) N.gonorrhoeae DNA Probe NOT DETECTED (NEGATIVE) 12/20/23 12/20/23 Range/Units 14:10 14:10 WBC 5.0 (4.0-10.5) x10^3/uL RBC 4.91 (4.1-5.6) x10^6/uL Hgb 14.1 (12.5-18.0) g/dL Hct 43.1 (42-50) % MCV 87.8 (78-100) fL MCH 28.7 (26-32) pg MCHC 32.7 (32-36) g/dL RDW 14.3 H (11.5-14.0) % Plt Count 312 (150-450) x10^3/uL MPV 9.8 (7.5-11.0) fL Gran % 42.6 (36.0-66.0) % Immature Gran % (Auto) 0.2 (0.00-0.4) % Nucleat RBC Rel Count 0.0 (0.00-0.1) % Eos # (Auto) 0.34 (0-0.5) x10^3/uL Immature Gran # (Auto) 0.01 (0.00-0.03) x10^3u/L Absolute Lymphs (auto) 2.00 (1.0-4.6) x10^3/uL Absolute Monos (auto) 0.46 (0.0-1.3) x10^3/uL Absolute Nucleated RBC 0.00 (0.00-0.01) x10^3u/L Lymphocytes % 40.2 (24.0-44.0) % Monocytes % 9.2 (0.0-12.0) % Eosinophils % 6.8 H (0.00-5.0) % Basophils % 1.0 (0.0-0.4) % Absolute Granulocytes 2.12 (1.4-6.9) x10^3/uL Basophils # 0.05 (0-0.4) x10^3/uL Sodium 144 (135-145) mmol/L Potassium 3.5 (3.5-5.1) mmol/L Chloride 105 (98-107) mmol/L Carbon Dioxide 31 H (22-30) mmol/L Anion Gap 11.0 (5-15) MEQ/L BUN 12 (9-20) mg/dL Creatinine 1.00 (0.66-1.25) mg/dL Estimated GFR 103.8 ML/MIN Glucose 96 (74-106) mg/dL Calcium 9.6 (8.4-10.2) mg/dL Total Bilirubin 0.40 (0.2-1.3) mg/dL AST 23 (17-59) U/L ALT 20 (0-50) U/L Alkaline Phosphatase 63 (38-126) U/L Troponin I < 0.012 (0.000-0.033) ng/mL Serum Total Protein 7.8 (6.3-8.2) g/dL Albumin 4.4 (3.5-5.0) g/dL Urine Color (Yellow) Urine Appearance (Clear) Urine pH (4.6-8.0) Ur Specific [place] (1.005-1.030) Urine Protein (Negative) Urine Glucose (UA) (Negative) mg/dL Urine Ketones (Negative) Urine Blood (Negative) Urine Nitrite (Negative) Urine Bilirubin (Negative) Urine Urobilinogen (0.2) mg/dL Ur Leukocyte Esterase (Negative) U Hyaline Cast (Auto) (0-2) /LPF Urine Microscopic RBC (0-5) /HPF Urine Microscopic WBC (0-5) /HPF Ur Epithelial Cells (None Seen) /HPF Urine Bacteria (None Seen) /HPF Urine Culture Reflexed (NO) Urine Opiates Level (NEGATIVE) Ur Methadone (NEGATIVE) Urine Barbiturates (NEGATIVE) Ur Phencyclidine (PCP) (NEGATIVE) Urine Amphetamine (NEGATIVE) U Benzodiazepine Level (NEGATIVE) Urine Cocaine (NEGATIVE) Urine Marijuana (THC) (NEGATIVE) Chlamydia DNA Probe (NEGATIVE) N.gonorrhoeae DNA Probe (NEGATIVE) - Progress Progress: improved Progress Note: 28-year-old male presents to our ED for evaluation of dehydration. Workup rev eals a urinary tract infection. Patient is sexually active and stated that he may need STI evaluation. GC chlamydia ordered. Results pending. Patient discharged home however will follow-up on GC chlamydia. Complex problem addressed is moderate acute complicated. No critical care time. Complex of data reviewed and analyzed is moderate. Risk complication and or risk of morbidity/mortality patient management i moderate. Prescription for ciprofloxacin forwarded to patient's pharmacy. Vital stable. Time spent to discharge patient approximately 20 minutes. Plan of care established for shared decision making. No social determinants of health present impede follow-up. Patient does not have a local primary care doctor to follow-up with. Patient given a referral to Dr. Waters Portions of this note were created with voice recognition technology. There may be grammatical, spelling, punctuation or sound alike errors 12/20/23 15:49 12/20/23 15:50 GC chlamydia negative 12/21/23 02:55 Counseled pt/family regarding: lab results, diagnosis, need for follow-up - Departure Departure Disposition: Home Clinical Impression: UTI (urinary tract infection) Condition: Stable Critical Care Time: No Referrals: DOCTOR,NO FAMILY [Primary Care Provider] - Follow up/PCP as directed MELLISSA WATERS MD [ACTIVE STAFF] - Follow up/PCP as directed Instructions: Urinary Tract Infection, Child ED Additional Instructions: Discharge/Care Plan MARQUIS BARKLEY was seen on 12/20/23 in the Emergency Room. The patient was counseled regarding Diagnosis,Lab results, Imaging studies, need for follow up and when to return to the Emergency Room. Prescriptions given: Discharge Note I have spoken with the patient and/or caregivers. I have explained the patient's condition, diagnosis and treatment plan based on the information available to me at this time. I have answered the patient's and/or caregiver's questions and addressed any concerns. The patient and/or caregivers have as good understanding of the patient's diagnosis, condition and treatment plan as can be expected at this point. The vital signs have been stable. The patient's condition is stable and appropriate for discharge from the emergency department. The patient will pursue further outpatient evaluation with the primary care physician or other designated or consulting physician as outlined in the discharge instructions. The patient and/or caregivers are agreeable to this plan of care and follow-up instructions have been explained in detail. The patient and/or caregivers have received these instruction. The patient/and or caregivers are aware that any significant change in condition or worsening of symptoms should prompt an immediate return to this or the closest emergency department or call 911. Prescriptions: Ciprofloxacin [Cipro 500 MG] 500 mg PO BID 10 Days #20 tablet
[2023-12-20 14:21] VITALS: TEMP 98.4
[2023-12-20] MEDS ORDERED: Sodium Chloride 0.9% 1000 ML 1,000 ML ONE (14:21)
[2023-12-20] MEDS: Sodium Chloride 0.9% 1000 ML 1,000 ML IV STA (14:22)
[2023-12-20 14:27] LABS: Absolute Neutrophil Ct (ANC) 2.12 x10^3/uL (1.4-6.9); Basophil (Absolute #) 0.05 x10^3/uL (0-0.4); Eosinophil % 6.8 % (0.00-5.0); Eosinophil (Absolute #) 0.34 x10^3/uL (0-0.5); Hematocrit 43.1 % (42-50); Hemoglobin 14.1 g/dL (12.5-18.0); IMMATURE GRAN # 0.01 x10^3u/L (0.00-0.03); IMMATURE GRAN % 0.2 % (0.00-0.4); Lymphocytes % 40.2 % (24.0-44.0); Mean Cell Volume 87.8 fL (78-100); Mean Corpuscular Hemoglobin 28.7 pg (26-32); Mean Corpuscular Hgb Concent. 32.7 g/dL (32-36); Mean Platelet Volume 9.8 fL (7.5-11.0); Monocyte (Absolute #) 0.46 x10^3/uL (0.0-1.3); Monocytes % 9.2 % (0.0-12.0); Neutrophil % 42.6 % (36.0-66.0); Platelet Count 312 x10^3/uL (150-450); Red Blood Count 4.91 x10^6/uL (4.1-5.6); Red Cell Distribution Width 14.3 % (11.5-14.0)
[2023-12-20 14:53] LABS: ALBUMIN 4.4 g/dL (3.5-5.0); ALKALINE PHOSPHATASE 63 U/L (38-126); BLOOD UREA NITROGEN 12 mg/dL (9-20); CHLORIDE 105 mmol/L (98-107); Calcium 9.6 mg/dL (8.4-10.2); Carbon Dioxide 31 mmol/L (22-30); EST GLOMERULAR FILTRATION RATE 103.8 ML/MIN; Glucose 96 mg/dL (74-106); Potassium 3.5 mmol/L (3.5-5.1); SGOT/AST 23 U/L (17-59); SGPT/ALT 20 U/L (0-50); SODIUM 144 mmol/L (135-145); TROPONIN < 0.012 ng/mL (0.000-0.033); Total Protein 7.8 g/dL (6.3-8.2)
[2023-12-20 15:23] LABS: Appearance Clear (Clear); Bacteria None Seen /HPF (None Seen); Bilirubin Negative (Negative); Blood Negative (Negative); Epithelial Cells None Seen /HPF (None Seen); Glucose, Urine Negative (Negative); Hyaline Casts NONE SEEN /LPF (0-2); Ketones Negative (Negative); Leukocyte Esterase Trace (Negative); Nitrite Negative (Negative); Protein,Urine Dip Negative (Negative); RBC 0-2 /HPF (0-5); Specific Gravity 1.025 (1.005-1.030)
[2023-12-20 15:24] LABS: ADD URINE CULTURE? NO (NO)
[2023-12-20 15:32] LABS: Barbiturate,Urine NEGATIVE (NEGATIVE); Benzodiazepine,Urine NEGATIVE (NEGATIVE); Cocaine,Urine NEGATIVE (NEGATIVE); Methadone,Urine NEGATIVE (NEGATIVE); Opiate,Urine NEGATIVE (NEGATIVE); PCP,Urine NEGATIVE (NEGATIVE); THC,Urine POSITIVE (NEGATIVE)
[2023-12-20] MEDS ORDERED: ROCEPHIN 1 GM / 100 ML NaCl 1 GM/100 ML IVPB IV ONE (15:40)
[2023-12-20] MEDS: ROCEPHIN 1 GM / 100 ML NaCl 1 GM/100 ML IVPB IV ONE (15:42)
[2023-12-20 15:47] VITALS: BP 124/91; PULSE 66; RESP 13
[2023-12-20 15:49] VITALS: O2SAT 98
[2023-12-20 17:08] LABS: CHLAMYDIA DNA NOT DETECTED (NEGATIVE); GC DNA Probe NOT DETECTED (NEGATIVE)
[2023-12-20 17:54] LABS: Amphetamine,Urine POSITIVE (NEGATIVE)
== END 2023-12-20 15:52 | disposition home or self-care (01) ==
LOC: ED 13:33
DX: N39.0 Urinary tract infection, site not specified (principal); Z79.899 Other long term (current) drug therapy
CPT/HCPCS: 36000; 36415; 80053; 80307; 81001; 84484; 85025; 87491; 87591; 94760; 96365; 99284; J0696